=== PATIENT | female | born 1980 | race Caucasian/White ===

== ENCOUNTER 2019-04-05 14:28 | Emergency (ER) | payer OTHER ==
--- NOTE | 2019-04-05 15:00 | ER ---
Nurse's Notes [facility] Name: Maninder Pineda Age: 39 yrs Sex: Female : 1980 Arrival Date: 04/05/2019 Time: 14:28 Bed 27 Private MD: Diagnosis: Abrasion of nose;Abrasion of other part of head;Contusion of left breast Presentation: 04/05 14:40 Presenting complaint: Patient states: "I fell on my face and abdomen while playing tr5 kickball. I am concerned because i had a mastectomy and lower flap on my R breast with an implant and i want to make sure the implant did not pop.". Care prior to arrival: None. Mechanism of Injury: Fall from standing position. Trauma event details: Injury occurred in the [place], Injury occurred: in a recreational area. Injury occurred: April 05, 2019. 14:40 Acuity: MELITON 3 tr5 14:40 Method Of Arrival: Ambulatory tr5 15:28 Transition of care: patient was not received from another setting of care. Onset of mg2 symptoms was April 05, 2019. Risk Assessment: Do you want to hurt yourself or someone else? Patient reports no desire to harm self or others. Initial Sepsis Screen: Does the patient meet any 2 criteria? No. Patient's initial sepsis screen is negative. Does the patient have a suspected source of infection? No. Patient's initial sepsis screen is negative. COLLEGE DEAN: 15:29 lmp unknown mg2 Trauma Activation: Not Applicable Physician: ED Physician; Name: ; Notified At: ; Arrived At: Physician: General Surgeon; Name: ; Notified At: ; Arrived At: Physician: Radiology; Name: ; Notified At: ; Arrived At: Physician: Respiratory; Name: ; Notified At: ; Arrived At: Physician: Lab; Name: ; Notified At: ; Arrived At: Historical: - Allergies: 14:56 No Known Allergies; tr5 - Home Meds: 14:56 Prozac Oral [Active]; tr5 - PMHx: 14:56 Cancer, Breast; tr5 - PSHx: 14:56 Mastectomy, Left; breast implant; tr5 - Immunization history:: Adult Immunizations up to date. - Immunization history: Last tetanus immunization: - up to date. - Family history:: not pertinent. - Social history:: Smoking status: unknown. - Ebola Screening: : No symptoms or risks identified at this time. Screenin:40 Abuse screen: Denies threats or abuse. Tuberculosis screening: No symptoms or risk tr5 factors identified. 14:56 Nutritional screening: No deficits noted. Fall Risk None identified. tr5 Primary Survey: 14:40 NO uncontrolled hemorrhage observed. A: The patient is alert. Airway: patent, No tr5 supplemental oxygen in use on arrival. Oral cavity: clear, Trachea midline. Breathing/Chest: Respiratory pattern: regular, Respiratory effort: spontaneous, Breath sounds: clear, bilaterally. Chest inspection: symmetrical rise and fall of the chest. Circulation: Cardiac rhythm: sinus rhythm Heart tones present. Pulses: palpable right radial artery, right posterior tibial artery, left radial artery and left posterior tibial artery. Skin color: pink, Skin temperature: warm. Disability Alert. Exposure/Environment: All clothing and personal items were removed. Forensic evidence collection is not deemed to be indicated at this time. Items placed in patient belonging bag. There is no evidence of uncontrolled external bleeding. No obvious injuries are noted at this time. 15:28 Reassessment Airway Airway Patent Breathing/Chest Respiratory pattern Regular mg2 Respiratory effort Spontaneous Circulation Color [place] Disability Alert. Secondary Survey: 14:40 HEENT: Head No injury/deformity Face Other scrape to nose and chin Eyes: No injury or tr5 deformity noted. Nose: clear to bilateral nares. Gastrointestinal: Abdomen is flat, Other Some lateral superficial scrapes to abdomen. Bowel sounds present in all quadrants. Palpation No deficit noted. : No signs and/or symptoms were reported regarding the genitourinary system. Musculoskeletal: No signs and/or symptoms reported regarding the musculoskeletal system. Assessment: 14:53 General: Appears in no apparent distress. Behavior is cooperative, appropriate for age, tr5 crying. Pain: Complains of pain in chin and abdomen. 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 Cardiovascular: Heart tones present. Respiratory: Airway is patent Respiratory effort is even, unlabored, Respiratory pattern is regular, symmetrical. GI: No signs and/or symptoms were reported involving the gastrointestinal system. : No signs and/or symptoms were reported regarding the genitourinary system. EENT: Scratches to nose and chin. Derm: No signs and/or symptoms reported regarding the dermatologic system. Musculoskeletal: No signs and/or symptoms reported regarding the musculoskeletal system. 15:30 Reassessment: Patient appears in no apparent distress at this time. mg2 Vital Signs: 14:40 BP 125 / 73; Pulse 81; Resp 19; Temp 98.5(O); Pulse Ox 100% ; Weight 72.12 kg; Height 5 tr5 ft. 6 in. (167.64 cm); 15:29 BP 122 / 75; Pulse 80; Resp 18; Temp 98; Pulse Ox 100% on R/A; mg2 14:40 Body Mass Index 25.66 (72.12 kg, 167.64 cm) tr5 Cody Coma Score: 14:40 Eye Response: spontaneous(4). Verbal Response: oriented(5). Motor Response: obeys tr5 commands(6). Total: 15. 15:29 Eye Response: spontaneous(4). Verbal Response: oriented(5). Motor Response: obeys mg2 commands(6). Total: 15. Trauma Score (Adult): 14:40 Eye Response: spontaneous(1); Verbal Response: oriented(1); Motor Response: obeys tr5 commands(2); Systolic BP: > 89 mm Hg(4); Respiratory Rate: 10 to 29 per min(4); Cody Score: 15; Trauma Score: 12 15:29 Eye Response: spontaneous(1); Verbal Response: oriented(1); Motor Response: obeys mg2 commands(2); Systolic BP: > 89 mm Hg(4); Respiratory Rate: 10 to 29 per min(4); Cody Score: 15; Trauma Score: 12 ED Course: 14:28 Patient arrived in ED. as 14:35 Eh Hassan MD is Attending Physician. gs 14:40 Hola Kahn, ZEESHAN is Primary Nurse. tr5 14:40 Bed in low position. Call light in reach. tr5 14:40 Patient maintains SpO2 saturation greater than 95% on room air. tr5 14:43 Triage completed. tr5 15:26 Arm band placed on right wrist. mg2 15:26 No provider procedures requiring assistance completed. Patient did not have IV access mg2 during this emergency room visit. Wound care: to abrasion, located on nose was cleaned with with saline, Patient tolerated well. done by Dr Hassan. steri strips applied. 15:30 Thermoregulation: warm blanket given to patient. mg2 Administered Medications: 15:25 Drug: Tetanus-Diphtheria Toxoid Adult 0.5 ml {Watch Dial Printer: [employer]. Exp: mg2 10/30/2020. Lot #: [id number]. } Route: IM; Site: right deltoid; 15:26 Follow up: Response: No adverse reaction; Medication administered at discharge. mg2 Intake: 15:30 PO: 0ml; Total: 0ml. mg2 Outcome: 14:40 Patient's length of stay was not longer than 2 hours. tr5 14:59 Discharge ordered by . gs 15:30 Discharged to home ambulatory, with family. mg2 15:30 Condition: stable 15:30 Discharge instructions given to patient, family, Instructed on discharge instructions, follow up and referral plans. wound care, Demonstrated understanding of instructions, follow-up care, wound care. 15:31 Patient left the ED. mg2 Signatures: Shayla Huber Gregory, MD MD Dayne Hedrick RN RN mg2 Hola Kahn RN RN tr5 Corrections: (The following items were deleted from the chart) 15:30 15:26 Wound care: to abrasion, located on nose was cleaned with with saline, Patient mg2 tolerated well. done by Dr Hassan. mg2
--- NOTE | 2019-04-05 15:00 | EDPHYS ---
Physician Documentation [facility] Name: Maninder Pineda Age: 39 yrs Sex: Female : 1980 Arrival Date: 04/05/2019 Time: 14:28 Bed 27 Private MD: ED Physician Eh Hassan HPI: 04/05 16:18 This 39 yrs old Female presents to ER via Ambulatory with complaints of Fall gs Injury. 16:18 Details of fall: The patient fell from an upright position, while running. Onset: The gs symptoms/episode began/occurred acutely, just prior to arrival. Associated injuries: The patient sustained injury to the head, abrasion, contusion, nose and chip superficial . Severity of symptoms: At their worst the symptoms were moderate, in the emergency department the symptoms are unchanged. The patient has not experienced similar symptoms in the past. no LOC. 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 - Immunization history: Last tetanus immunization: - up to date. - Family history:: not pertinent. - Social history:: Smoking status: unknown. - Ebola Screening: : No symptoms or risks identified at this time. ROS: 16:18 All other systems are negative. gs Exam: 16:18 Eyes: Pupils equal round and reactive to light, extra-ocular motions intact. Lids and gs lashes normal. Conjunctiva and sclera are non-icteric and not injected. Cornea within normal limits. Periorbital areas with no swelling, redness, or edema. ENT: Nares patent. No nasal discharge, no septal abnormalities noted. Tympanic membranes are normal and external auditory canals are clear. Oropharynx with no redness, swelling, or masses, exudates, or evidence of obstruction, uvula midline. Mucous membranes moist. Neck: Trachea midline, no thyromegaly or masses palpated, and no cervical lymphadenopathy. Supple, full range of motion without nuchal rigidity, or vertebral point tenderness. No Meningismus. Chest/axilla: Normal chest wall appearance and motion. Nontender with no deformity. No lesions are appreciated. Cardiovascular: Regular rate and rhythm with a normal S1 and S2. No gallops, murmurs, or rubs. Normal PMI, no JVD. No pulse deficits. Respiratory: Lungs have equal breath sounds bilaterally, clear to auscultation and percussion. No rales, rhonchi or wheezes noted. No increased work of breathing, no retractions or nasal flaring. Abdomen/GI: Soft, non-tender, with normal bowel sounds. No distension or tympany. No guarding or rebound. No evidence of tenderness throughout. Back: No spinal tenderness. No costovertebral tenderness. Full range of motion. Skin: Warm, dry with normal turgor. Normal color with no rashes, no lesions, and no evidence of cellulitis. MS/ Extremity: Pulses equal, no cyanosis. Neurovascular intact. Full, normal range of motion. Neuro: Awake and alert, GCS 15, oriented to person, place, time, and situation. Cranial nerves II-XII grossly intact. Motor strength 5/5 in all extremities. Sensory grossly intact. Cerebellar exam normal. Normal gait. 16:18 Constitutional: The patient appears alert, awake. 16:18 Head/face: Noted is abrasion(s), that are mild, of the nose and chin. 16:18 Chest/axilla: Breasts: tenderness, that is mild of the left breast, rn present. Vital Signs: 14:40 BP 125 / 73; Pulse 81; Resp 19; Temp 98.5(O); Pulse Ox 100% ; Weight 72.12 kg; Height 5 tr5 ft. 6 in. (167.64 cm); 15:29 BP 122 / 75; Pulse 80; Resp 18; Temp 98; Pulse Ox 100% on R/A; mg2 14:40 Body Mass Index 25.66 (72.12 kg, 167.64 cm) tr5 Marion Coma Score: 14:40 Eye Response: spontaneous(4). Verbal Response: oriented(5). Motor Response: obeys tr5 commands(6). Total: 15. 15:29 Eye Response: spontaneous(4). Verbal Response: oriented(5). Motor Response: obeys mg2 commands(6). Total: 15. Trauma Score (Adult): 14:40 Eye Response: spontaneous(1); Verbal Response: oriented(1); Motor Response: obeys tr5 commands(2); Systolic BP: > 89 mm Hg(4); Respiratory Rate: 10 to 29 per min(4); Marion Score: 15; Trauma Score: 12 15:29 Eye Response: spontaneous(1); Verbal Response: oriented(1); Motor Response: obeys mg2 commands(2); Systolic BP: > 89 mm Hg(4); Respiratory Rate: 10 to 29 per min(4); Cody Score: 15; Trauma Score: 12 MDM: 14:54 Patient medically screened. 16:18 Differential diagnosis: abrasion, contusion. Data reviewed: vital signs, nurses notes. Response to treatment: the patient's symptoms have markedly improved after treatment, and as a result, I will discharge patient. Administered Medications: 15:25 Drug: Tetanus-Diphtheria Toxoid Adult 0.5 ml {Nitroglycerin Distributor: [employer]. Exp: mg2 10/30/2020. Lot #: [id number]. } Route: IM; Site: right deltoid; 15:26 Follow up: Response: No adverse reaction; Medication administered at discharge. [facility] Disposition: 04/05/19 14:59 Discharged to Home. Impression: Abrasion of nose, Abrasion of other part of head, Contusion of left breast. - Condition is Stable. - Discharge Instructions: Contusion, Abrasion, [id number]. - Medication Reconciliation Form, Thank You Letter, Antibiotic Education, Prescription Opioid Use form. - Follow up: Private Physician; When: 2 - 3 days; Reason: Re-evaluation by your physician. Signatures: Helio Joseph MD MD [facility] Eh Hassan MD MD Dayne Hedrick, ZEESHAN RN [facility] Hola Kahn RN RN tr5 Corrections: (The following items were deleted from the chart) 15:31 14:59 04/05/2019 14:59 Discharged to Home. Impression: Abrasion of nose; Abrasion of mg2 other part of head; Contusion of left breast. Condition is Stable. Forms are Medication Reconciliation Form, Thank You Letter, Antibiotic Education, Prescription Opioid Use. Follow up: Private Physician; When: 2 - 3 days; Reason: Re-evaluation by your physician.
[2019-04-05] MEDS ORDERED: TETANUS & DIPHTHERIA TOX,ADULT 0.5 ML VIAL ONE (15:11)
[2019-04-05 15:49] VITALS: O2SAT 100
[2019-04-05 15:51] VITALS: BP 122/75; TEMP 98
== END 2019-04-05 15:31 | disposition home or self-care (01) ==
LOC: ER 14:28
DX: S20.02XA Contusion of left breast, initial encounter (principal); S00.31XA Abrasion of nose, initial encounter; S00.91XA Abrasion of unspecified part of head, initial encounter; W18.30XA Fall on same level, unspecified, initial encounter; Y93.69 Activity, other involving other sports and athletics played as a team or group; Y92.9 Unspecified place or not applicable; Z98.82 Breast implant status; Z23 Encounter for immunization
CPT/HCPCS: 90471; 90714; 99284

== ENCOUNTER 2020-12-18 06:30 | Day surgery (SDC) | payer BC, OTHER ==
[2020-12-15 11:19] LABS: Absolute Lymphocytes (CBC) 1.5 K/uL (0.7-4.9); Basophils % 0.4 % (0-1.3); Hematocrit 38.7 % (36.0-45.0); Lymphocytes % 34.7 % (15.3-44.8); MPV 8.3 fL (7.6-11.3); RBC Red Blood Cell Count 4.29 M/uL (3.86-4.86)
[2020-12-15 11:20] LABS: Potassium 4.1 mmol/L (3.5-5.1)
--- NOTE | 2020-12-15 11:24 | RAD REPORT ---
EXAM DESCRIPTION: RAD - Chest Pa And Lat (2 Views) - 12/15/2020 10:57 am CLINICAL HISTORY: preoppending foot surgery, history of mastectomy and reconstruction COMPARISON: None TECHNIQUE: Frontal and lateral views of the chest were obtained. FINDINGS: The lungs are clear. Numerous surgical clips overlie the chest from prior surgical proced ures. No failure or volume overload. Heart size is normal and central vasculature is within normal li mits. No pleural effusion or pneumothorax seen. No acute bony finding noted. No aortic abnormality . IMPRESSION: No acute cardiopulmonary process.
--- NOTE | 2020-12-15 12:54 | EKG ---
Test Date: 2020-12-15 Test Time: 09:37:07 Attache: FLORINDA MEASUREMENT RESULTS: Intervals: Rate: 52 AR: 142 QRSD: 86 QT: 460 QTc: 427 [place]: P: 45 AR: 142 QRS: 68 T: 49 INTERPRETIVE STATEMENTS: Sinus bradycardia Otherwise normal ECG No previous ECG available for comparison Electronically Signed On 12-15-20 12:53:36 CDT by Alok Peters
--- NOTE | 2020-12-16 15:48 | PREOPHP ---
Date of Admission: 12/18/2020 History Of Present Illness: This patient presented to my office with chief complaint of a painful bi g toe joint present on the right foot. The patient has had discomfort with activity and requests yesy luation. Big toe joint is throbbing in nature, moderate in severity, present for approximately 3 yea rs, worse with activity, improved with rest. The patient has changed her shoe gear, changed activiti es all to no avail and request management. Past Medical History: Includes history of cancer. Past Surgical History: Includes and mastectomy. Current Medications: Include exemestane 25 mg, fluoxetine 20 mg, Yuvafem 10 mcg, and trazodone 50 mg taken when needed. Allergies: TO BACTRIM. Social History: The patient denies alcohol, cigarettes, or IV drug use. Physical Examination: General Appearance: The patient is healthy, well developed, well nourished, well oriented x3. Cardiovascular: Evaluation reveals dorsalis pedis and posterior tibial pulses to be 4/4 bilaterally. Capillary refill time is 3 seconds. Temperature gradient is within normal limits. There is no cla udication complaint or varicosities noted bilaterally. Musculoskeletal: Evaluation reveals a semi-rigid cavus foot type bilaterally. Subtalar joint shows normal position bilaterally. There was a forefoot adductus and supinatus bilaterally. There was a d orsal medial eminence of the first metatarsal head with range of motion on the left to 45 degrees and on the right to 30 degrees. There was a functional hallux limitus noted bilaterally. Equinus is no sebastien to be -10 degrees bilaterally per goniometer management. Digital exam revealed lesser digits are noted to be in normal alignment. Muscle knee and ankle assessment is within normal alignment and st rength. Plantar fascia shows no tenderness. Subcutaneous soft tissue mass is not present bilaterall y. Skin: Evaluation reveals no rash, ulcer, tumor, or contracture bilaterally. Neurologic: Evaluation reveals deep tendon reflexes of the patella and Achilles to be 5/5 bilaterall y. Vibratory and sharp dull sensation within normal limits. Laboratory Data: X-ray evaluation of the right foot reveals no fracture tumor. There is mild DJD no sebastien in the first MPJ of the right foot, bones well mineralized. There is a mild dorsiflexion of the first metatarsal. Lesser metatarsals well aligned. The first metatarsal is noted to be slightly aisha rter in length. No calcaneal spurs are noted. There was a lateral deviation of the hallux at the pr oximal phalanx in abduction causing increase in the hallux interphalangeus angle. There was a hallux abductus angle noted to be 14 degrees. Intermetatarsal angle was 10 degrees. There was dorsal spur ring of the first metatarsal head on the lateral view. Diagnoses: Hallux rigidus, pain in the right foot and congenital metatarsus adductus, right foot. R ecommended treatment due to lack of response to conservative measures of changing shoe gear, anti-inf lammatory medications, and modifying activity. Surgical management of the joint is recommended. A c heilectomy has been recommended to remove any spurring and address any cartilaginous defects with dri lling of the metatarsal head with a K-wire. A possible decompression osteotomy was discussed, althou gh it is felt that the first metatarsal is not too long and removal of the dorsal eminence can be don e without an osteotomy. Also was discussed a possible Sanchez procedure due to hallux interphalangeus a ngle increase and abnormal retrograde force on the first metatarsal head from this. The patient unde rstands the risks, benefits, and alternatives of the above-mentioned procedures including, but not li mited to the risk of pain, swelling, numbness, stiffness, infection, nonhealing of skin or bone, recu rrence of the deformity. Also, the certainty that further surgery will be needed down the road as th is is a progressive deformity. Orthotic management is appropriate to help control and minimize this, but the degenerative nature of the first metatarsal head which will be visualized intraop is general ly a progressive process. Implant or fusion were mentioned as possible procedures in the future as n eeded. COVID-19 risks were also discussed with the patient. She has been vaccinated, but was also m svetlana aware of CBC guidelines for mask use and proper avoidance of risky situations where infection wou ld be of greater risk. The increased risk of blood clots and infection complicating recovery were di scussed. The patient was educated on the use of cold therapy machine. Labs will be performed. Medi loree H and P will be completed by Anesthesia. The patient is scheduled for surgery at [facility] on December 18, 2020. The patient has been given postop instructions in the written form as well as emergency phone number and postop medications for pain. She will ambulate in a postop shoe per instr uctions post surgery. STEVE Voice ID: [id number]
[2020-12-18] MEDS ORDERED: Ringers Lactate 1,000 ML IV ONE (07:10)
[2020-12-18] MEDS ORDERED: CEFAZOLIN/SWI 1gm 1 GM/10 ML SYR ONE (07:10)
[2020-12-18] MEDS ORDERED: MIDAZOLAM HCL 2 MG/2 ML INJ ONE (07:33)
[2020-12-18] MEDS ORDERED: propofoL 200 MG/20 ML VIAL IV ONE ×5 (07:33→09:01)
[2020-12-18] MEDS ORDERED: LIDOCAINE 1% 20 ML MDV ONE (07:34)
[2020-12-18] MEDS ORDERED: LIDOCAINE 1% MPF 5 ML VIAL ONE (07:34)
[2020-12-18] MEDS ORDERED: dexAMETHasone 4 MG/ML VIAL ONE (07:34)
[2020-12-18] MEDS ORDERED: Mastisol Adhesive Liq ONE (07:34)
[2020-12-18] MEDS ORDERED: FENTANYL CITR 100 MCG/2 ML ONE (07:34)
[2020-12-18] MEDS: BUPIVACAINE 0.5% PF 10 ML VIAL ONE ×3 (07:45→08:53)
[2020-12-18] MEDS ORDERED: ONDANSETRON 4 MG/2 ML VIAL ONE (08:04)
[2020-12-18] MEDS ORDERED: KETOROLAC 30 MG/ML INJ ONE (08:04)
--- NOTE | 2020-12-18 10:25 | RAD REPORT ---
EXAM DESCRIPTION: RAD - Foot Right 3 View - 12/18/2020 9:45 am CLINICAL HISTORY: s/p foot surgery Postsurgical foot COMPARISON: No comparisons FINDINGS: Postsurgical changes are present involving the proximal phalanx of the great toe with a me dially located hardware stable. Bone detail is mildly limited. No unexpected postsurgical finding.
[2020-12-18 11:33] VITALS: BP 107/76; TEMP 97.2; O2SAT 100
--- NOTE | 2020-12-18 14:26 | OP ---
Date of Procedure: 12/18/2020 Surgeon: George Johnson DPM Preoperative Diagnoses: 1.Hallux rigidus, first metatarsophalangeal joint, right foot. 2.Deformity of the digit right hallux proximal phalanx. Postoperative Diagnoses: 1.Hallux rigidus, first metatarsophalangeal joint, right foot. 2.Deformity of the digit right hallux proximal phalanx. Procedure: 1.Cheilectomy, first metatarsophalangeal joint, right foot. 2.Sanchez osteotomy with staple fixation 8 mm right hallux proximal phalanx for angular correction. Anesthesia: TIVA Procedure In Detail: The patient was brought into the operating room, placed on operating table in s upine position. IV sedation was introduced but the patient was combative and was converted to the TI VA. A 10 cc of 0.5% Marcaine plain were injected in a regional block at the first MPJ. The patient was prepped and draped in usual sterile manner. The right extremity was elevated to 60 degrees. An Esmarch bandage was applied to exsanguinate the blood supply. Pneumatic tourniquet was elevated to 2 50 mmHg and the Esmarch was removed. The first MPJ was then approached and a 5 cm dorsal linear inci juan manuel was made overlying the first MPJ extending onto the proximal phalanx of the hallux. The incisio n was deepened via sharp and blunt dissection down to the level of capsule. This was incised in a li near fashion 5 cm down to bone, capsule was freed medially and laterally, bring into view the first M PJ. Degenerative changes were seen on the dorsal aspect of the first metatarsal head and the base of the proximal phalanx. These were removed utilizing a rongeur, osteotome and mallet. The areas were rotary burred smooth. There was a slight medial shoulder to the first met head, this was removed ut ilizing sagittal saw. All rough edges were smoothed. The area was flushed with copious amounts of s terile saline. The first metatarsal head was then fenestrated with 0.045 K-wire, approximately 8 hol es to stimulate fibrocartilage. The area was flushed with copious amounts of sterile saline. The ba se of the proximal phalanx of the hallux was then approached. An osteotomy was created utilizing the sagittal saw with the apex lateral and the base medial. The first cut was made parallel to the robert cular cartilage of the proximal phalanx base. The second cut was made parallel to the deformed angle and a wedge of bone was removed. The area was feathered until the cut was well approximated utiljuniori ng an 8 mm staple. Two drill holes were made with the template in place. A pin was then put in the proximal hole. The distal hole was then drilled. The template was removed as well as the pin and wi th the osteotomy compressed, a staple was introduced and tamped into place. The area was flushed wit h copious amounts of sterile saline. Capsular tissue was reapproximated utilizing 2-0 Vicryl suture after removing any hypertrophied capsule of tissue. Skin was reapproximated utilizing a 4-0 Prolene horizontal mattress suture. Range of motion on the table was approximately 70 degrees. There was so me tightness due to tourniquet, but this was improved after tourniquet release. Capillary return was seen to be instantaneous to all digits. The patient was dressed with Adaptic, dry sterile gauze, dr wilda marques Cyril, Kerlix, cold therapy pad, and Adriano bandaging. The patient will be followed in off ice for postoperative care. Postop medications were dispensed as well as emergency phone number and postop instructions in the written form. The patient will ambulate in a postop shoe. The patient wa s sent to recovery in satisfactory condition. KENYA/WESLEY Voice ID: [id number] Report ID: [id number]
--- NOTE | 2020-12-18 14:26 | DS ---
Date of Discharge: 12/18/2020 Date Of Surgery: 12/18/2020 Surgeon: George Johnson DPM Preoperative Diagnoses: 1.Hallux rigidus, right foot first metatarsophalangeal joint. 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 Postoperative Diagnoses: 1.Hallux rigidus, right foot first metatarsophalangeal joint. 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 Procedures: 1.Cheilectomy, first metatarsophalangeal joint, right foot. 2.Sanchez osteotomy with staple fixation 8 mm for angular correction. Hospital Course: The patient tolerated the procedure and anesthesia in satisfactory condition, sent to recovery room in satisfactory condition. The patient will be sent home for anesthesia guidelines with postop medications at home already and postop instructions in written form. STEVE Voice ID: [id number] Report ID: [id number]
== END 2020-12-18 10:55 | disposition home or self-care (01) ==
LOC: OR 06:30
PROVIDERS: ATTEND Podiatrist
PROC: 0QBN0ZZ Excision of Right Metatarsal, Open Approach (ICD-10-PCS; 2020-12-18)
PROC: 0QSN04Z Reposition Right Metatarsal with Internal Fixation Device, Open Approach (ICD-10-PCS; principal; 2020-12-18 07:30)
DX: M20.21 Hallux rigidus, right foot (principal); M20.5X1 Other deformities of toe(s) (acquired), right foot
CPT/HCPCS: 28289; 93005; 85025; 80048; 36415; 71046; 73630; J2704 ×5; J2250; J3010; J0690; J7120; J2405; J1100